=== PATIENT | male | born 2000 | race Caucasian/White ===

== ENCOUNTER 2025-07-13 22:28 | Inpatient (IN) ==
--- NOTE | 2025-07-13 22:37 | Emergency Department Note ---
Impression & Plan Alcohol withdrawal seizure, Alcoholism ED Provider Note Name: GRAHAM LOPEZ Age: 25 Sex: Male Arrives Via: Ambulance Informant: Patient, EMS, Family ED Provider: Loi Cortez MD Chief Complaint: Seizure Impression: As per impressions above Medical Decision Makin-year-old male with a history of alcoholism arrives for evaluation following a seizure. He is quite tremulous and shaky on arrival with tachycardia and hypertension. Findings consistent with acute alcohol withdrawal and admits last alcohol was 24-dawn hours ago. Laboratory workup initiated and I did obtain a CT of the head to verify no intracranial pathology from that perspective. He was empirically given some IV phenobarbital per protocol. Laboratory workup does show mildly elevated LFTs consistent with his alcoholism. He is not having any abdominal pain tenderness palpation. Given the seizure and vital sign abnormalities I do feel he requires hospitalization. Phenobarb did seem to improve his symptoms while in the department. Triage/Nursing Notes reviewed by Me Differential: ETOH Withdrawal,Epilepsy, infection, hypoglycemia, electrolyte abnormalities, cardiac sources, intracerebral event, trauma, toxicologic, neurologic, syncope, as well as other pathologies. Vital Signs: reviewed and remarkable for hypertension, tachycardia Interventions: 1 L normal saline, thiamine IV, phenobarb IV Labs:ED labs Reviewed by me and remarkable for elevated LFTs Imaging:CT of the head without contrast as per my informal interpretation reveals no intracranial hemorrhage or mass effect. EKG:As per my interpretation. Indication seizure. Sinus tachycardia 137 bpm QTc of 443. There is no ectopy nor ischemia. Nonspecific ST depressions consistent with rate. When compared to EKG of 01/06/2025 heart rate has increased. Cardiac/Tele Monitoring: Cardiac Monitoring: An Order was placed for continuous cardiac monitoring. The monitor shows a rate of 140 with a sinus tach rhythm. Consults:Discussed with Dr. Price of the hospitalist service who will further evaluate manage Plan: Disposition:Hospitalization. Condition: Fair History of Present Illness: 25-year-old male arrives for evaluation post seizure. Patient with a history of seizure like activity about a year ago and uncertain etiology. Patient notes he was feeling bit shaky and nauseous this evening. This was followed by a somewhat syncopal event with a 1 to 2-minute shaking episode. Patient gradually came to and was a bit confused. EMS arrived. Patient was hypertensive and tachycardic. Brought in the ER for further evaluation without treatment prior to arrival. Patient notes that he feels quite shaky and a bit weak. Denies any specific headache, neck pain, chest pain, shortness of breath abdominal pain, back pain, nausea, vomiting or other concerning signs or symptoms. He does admit to relatively heavy alcohol use primarily on weekends. He did have a holiday alliance party about 2 days ago though he admits he is a little unclear on the timeline right now. He believes that the last time he had a drink. Past Medical History:Denies Home Medications:Denies Allergies:NKDA Vitals:Blood Pressure: 208/152, Pulse 127, RR 28, T 37C, O2 96% on RA Physical Exam: GENERAL: Patient is anxious appearing and in mild distress. Slightly confused though A&O HEAD: AT/NC NECK: Midline trachea, no swelling. Bruising left lateral neck from where necklace caught on skin FACE: mildly edematous with petechia RESPIRATORY: No dyspnea. Clear to auscultation and equal bilaterally. CARDIOVASCULAR: Regular rate and rhythm.No murmur appreciated. GASTROINTESTINAL: Abdomen soft, non-tender, no peritonitis. EXTREMITIES: Normal motion all extremities, no cyanosis, no edema. NEUROLOGIC: Very tremulous, Alert and oriented. No focal neurologic deficits appreciated SKIN: No rash, no jaundice, no diaphoresis. PSYCH: Appropriate GCS: 15 ED Course: Times/Reassessments: Patient is gradually improving following the IV phenobarb and IV fluids. He is breathing comfortably and neurologically intact without further seizure-like activity. Agreeable to hospitalization. Critical Care: I have personally spent 30 minutes of critical care time in the direct management of this patient. Acute alcohol withdrawal with seizure requiring resuscitation and IV phenobarbital. This was a life/limb threatening event. This 30 minutes is in excess of all separately billable procedures. Loi Cortez MD Past Med/Surg History Problem List (Updated 07/14/25 @ 05:59 by Loi Cortez MD) Alcoholism (Acute) Alcohol withdrawal seizure (Acute) Seizure Right ankle injury (Acute) Medical History (Updated 07/14/25 @ 05:59 by Loi Cortez MD) Pilonidal cyst Surgical History Hx of anterior cruciate ligament surgery Family History Other No significant family history Social History (Updated 07/14/25 @ 04:16 by Ly Luna RN) Smoking Status: Never smoker Hx Alcohol Use: Yes Alcohol type: hard liquor Hx Substance Use: No Preferred Language: Urdu Communication Ability: Effective Visual Impairment: No Limitations Hearing Ability: Normal Volcanologist Required: No Beliefs That Will Affect Care: None Current Living Situation: Parent current occupational status: student Other Information That Helps Us Care for You: No Feels Safe at Home: Yes Safety Concerns: Feels Safe At This Time Assistive Devices: None Allergies Allergies Allergy/AdvReac Type Severity Reaction Status Date / Time No Known Allergies Allergy Verified 07/13/25 22:56 Home Meds Home Medications Medication Instructions Recorded Confirmed ibuprofen 125 mg-acetaminophen 250 2 tab PO DIRECTED PRN 07/13/25 07/13/25 mg tablet (Advil Dual Action) PAIN/ACHES/FEVER Results & Data (ED) Vital Signs Vital Signs - 24 hr 07/13/25 22:32 07/13/25 22:33 07/13/25 22:33 Temperature 37.0 C Temperature Source Oral Pulse Rate 143 H 147 H Pulse Rate [Apical] 145 H Pulse Rate from SpO2 Sensor 147 H Respiratory Rate 18 17 Respiratory Effort / Characteristics Non-Labored Spontaneous Respiratory Depth Normal Respiratory Pattern Regular Blood Pressure 208/152 H Blood Pressure [Right Arm] 208/152 H Blood Pressure Mean 170 Blood Pressure Mean [Right Arm] 170 Blood Pressure Position [Right Arm] Semi-fowlers Pulse Oximetry 97 91 Oxygen Delivery Method Room Air Sepsis Recent Fever Within 48 Hours Sepsis New/Unexplained Change in Mental Status Sepsis Action Taken by Nursing 07/13/25 22:36 07/13/25 22:45 07/13/25 22:48 Temperature Temperature Source Pulse Rate 127 H 121 H 117 H Pulse Rate [Apical] Pulse Rate from SpO2 Sensor 121 H 121 H Respiratory Rate 28 H 19 19 Respiratory Effort / Characteristics Non-Labored Respiratory Depth Normal Respiratory Pattern Blood Pressure 208/152 H Blood Pressure [Right Arm] Blood Pressure Mean 170 Blood Pressure Mean [Right Arm] Blood Pressure Position [Right Arm] Pulse Oximetry 96 96 97 Oxygen Delivery Method Room Air Sepsis Recent Fever Within 48 Hours No Sepsis New/Unexplained Change in Mental Status No Sepsis Action Taken by Nursing No Action Required 07/13/25 22:50 07/13/25 22:50 07/13/25 22:50 Temperature Temperature Source Pulse Rate Pulse Rate [Apical] 116 H Pulse Rate from SpO2 Sensor Respiratory Rate 18 Respiratory Effort / Characteristics Non-Labored Spontaneous Respiratory Depth Normal Respiratory Pattern Regular Blood Pressure 188/131 H 188/131 H Blood Pressure [Right Arm] 188/131 H Blood Pressure Mean 151 151 Blood Pressure Mean [Right Arm] 150 Blood Pressure Position [Right Arm] Semi-fowlers Pulse Oximetry 99 Oxygen Delivery Method Room Air Sepsis Recent Fever Within 48 Hours Sepsis New/Unexplained Change in Mental Status Sepsis Action Taken by Nursing 07/13/25 22:50 07/13/25 22:58 07/13/25 23:00 Temperature Temperature Source Pulse Rate 116 H Pulse Rate [Apical] Pulse Rate from SpO2 Sensor 117 H Respiratory Rate 17 Respiratory Effort / Characteristics Respiratory Depth Respiratory Pattern Blood Pressure 188/131 H Blood Pressure [Right Arm] Blood Pressure Mean 151 Blood Pressure Mean [Right Arm] Blood Pressure Position [Right Arm] Pulse Oximetry 100 99 Oxygen Delivery Method Room Air Sepsis Recent Fever Within 48 Hours Sepsis New/Unexplained Change in Mental Status Sepsis Action Taken by Nursing 07/13/25 23:01 07/13/25 23:30 07/14/25 00:00 Temperature Temperature Source Pulse Rate 107 H 123 H 111 H Pulse Rate [Apical] Pulse Rate from SpO2 Sensor Respiratory Rate 18 24 24 Respiratory Effort / Characteristics Respiratory Depth Respiratory Pattern Blood Pressure 169/115 H 156/111 H 153/96 H Blood Pressure [Right Arm] Blood Pressure Mean 126 115 Blood Pressure Mean [Right Arm] Blood Pressure Position [Right Arm] Pulse Oximetry 97 96 Oxygen Delivery Method Sepsis Recent Fever Within 48 Hours Sepsis New/Unexplained Change in Mental Status Sepsis Action Taken by Nursing Laboratory Data 07/13/25 22:39 07/13/25 22:39 Lab Results 07/13/25 07/13/25 07/13/25 Range/Units 22:39 22:45 22:57 WBC 8.98 (4.8-10.8) K/ul RBC 4.39 L (4.70-6.10) M/uL Hgb 14.3 (14.0-18.0) g/dL POC Hgb 15.0 (14.0-18.0) g/dl Hct 40.0 L (42.0-52.0) % POC Hct 44 (42-52) % MCV 91.1 (80.0-100.0) fL MCH 32.6 (25.0-34.0) pg MCHC 35.8 (32.0-36.0) g/dL RDW Std Deviation 41.9 (36.4-46.3) fL RDW Coeff of Giorgi 12.5 (11.5-14.5) % Plt Count 127 L (130-400) K/uL MPV 10.0 (9.4-12.4) fL Immature Gran % (Auto) 0.2 % Neut % (Auto) 70.4 % Lymph % (Auto) 14.8 % [place] % (Auto) 13.6 % Eos % (Auto) 0.3 % Baso % (Auto) 0.7 % Neut # (Auto) 6.32 (1.40-6.50) K/uL Lymph # (Auto) 1.33 (1.20-3.40) K/uL [place] # (Auto) 1.22 H (0.11-0.59) K/uL Eos # (Auto) 0.03 (0.00-0.50) K/uL Baso # (Auto) 0.06 (0.00-0.20) K/uL Immature Gran # (Auto) 0.02 (0.01-0.20) K/uL PT 11.1 (9.0-12.0) Seconds INR 1.1 (0.9-1.1) POC Sodium 134 L (135-144) mmol/L Sodium 134 L (136-145) mmol/L POC Potassium 3.2 L (3.3-5.0) mmol/L Potassium 3.2 L (3.5-5.1) mmol/L POC Chloride 96 L (101-112) mmol/L Chloride 94 L (98-107) mmol/L Carbon Dioxide 20 L (21-32) mmol/L POC Total CO2 20 L (24-31) mmol/L Anion Gap 20 H (3-11) POC Anion Gap 23.0 (16-25) mmol/L POC BUN 9 (7-18) mg/dl BUN 10 (6-23) mg/dl Creatinine 0.87 (0.6-1.4) mg/dl POC Creatinine 0.9 (0.6-1.3) mg/dl Est Cr Clr Drug Dosing 132.9 ml/min eGFR 122.04 BUN/Creatinine Ratio 11.5 (10-20) Glucose 194 H (70-99(Fasting)) mg/dl POC Glucose (other) 184 H (70-99) mg/dl Calcium 10.4 H (8.6-10.3) mg/dl POC Ioniz Calcium Pablo 1.15 (1.12-1.32) mmol/l Phosphorus 3.4 (2.5-4.9) mg/dl Magnesium 1.4 L (1.7-2.4) mg/dl Total Bilirubin 1.8 H (0.2-1.0) mg/dl Direct Bilirubin 0.3 H (0-0.2) mg/dl AST 146 H (13-39) U/L ALT 97 H (7-52) U/L Alkaline Phosphatase 69 (34-104) U/L Troponin I High Sens 8.1 (0-20) pg/ml Total Protein 8.7 H (6.0-8.3) gm/dl Albumin 4.9 (3.4-5.0) gm/dl Lipase 17 (11-82) U/L TSH 3.725 (0.300-4.500) uIu/ml Urine Color Urine Appearance (Clear) Urine pH (4.5-7.5) Ur Specific [place] (1.000-1.030) Urine Protein (Negative) Urine Glucose (UA) (Negative) Urine Ketones (Negative) Urine Blood (Negative) Urine Nitrite (Negative) Urine Bilirubin (Negative) Urine Urobilinogen (Negative) Ur Leukocyte Esterase (Negative) Urine WBC (Auto) (0-5) /hpf Urine RBC (Auto) (0-2) /hpf U Hyaline Cast (Auto) (0-2) /lpf U Epithel Cells (Auto) (0-2) /hpf Urine Bacteria (Auto) (None Seen) Urine Comment Ethyl Alcohol mg/dL < 10.0 (<10.0) mg/dl 07/13/25 Range/Units 23:30 WBC (4.8-10.8) K/ul RBC (4.70-6.10) M/uL Hgb (14.0-18.0) g/dL POC Hgb (14.0-18.0) g/dl Hct (42.0-52.0) % POC Hct (42-52) % MCV (80.0-100.0) fL MCH (25.0-34.0) pg MCHC (32.0-36.0) g/dL RDW Std Deviation (36.4-46.3) fL RDW Coeff of Giorgi (11.5-14.5) % Plt Count (130-400) K/uL MPV (9.4-12.4) fL Immature Gran % (Auto) % Neut % (Auto) % Lymph % (Auto) % [place] % (Auto) % Eos % (Auto) % Baso % (Auto) % Neut # (Auto) (1.40-6.50) K/uL Lymph # (Auto) (1.20-3.40) K/uL [place] # (Auto) (0.11-0.59) K/uL Eos # (Auto) (0.00-0.50) K/uL Baso # (Auto) (0.00-0.20) K/uL Immature Gran # (Auto) (0.01-0.20) K/uL PT (9.0-12.0) Seconds INR (0.9-1.1) POC Sodium (135-144) mmol/L Sodium (136-145) mmol/L POC Potassium (3.3-5.0) mmol/L Potassium (3.5-5.1) mmol/L POC Chloride (101-112) mmol/L Chloride (98-107) mmol/L Carbon Dioxide (21-32) mmol/L POC Total CO2 (24-31) mmol/L Anion Gap (3-11) POC Anion Gap (16-25) mmol/L POC BUN (7-18) mg/dl BUN (6-23) mg/dl Creatinine (0.6-1.4) mg/dl POC Creatinine (0.6-1.3) mg/dl Est Cr Clr Drug Dosing ml/min eGFR BUN/Creatinine Ratio (10-20) Glucose (70-99(Fasting)) mg/dl POC Glucose (other) (70-99) mg/dl Calcium (8.6-10.3) mg/dl POC Ioniz Calcium Pablo (1.12-1.32) mmol/l Phosphorus (2.5-4.9) mg/dl Magnesium (1.7-2.4) mg/dl Total Bilirubin (0.2-1.0) mg/dl Direct Bilirubin (0-0.2) mg/dl AST (13-39) U/L ALT (7-52) U/L Alkaline Phosphatase (34-104) U/L Troponin I High Sens (0-20) pg/ml Total Protein (6.0-8.3) gm/dl Albumin (3.4-5.0) gm/dl Lipase (11-82) U/L TSH (0.300-4.500) uIu/ml Urine Color Yellow Urine Appearance Clear (Clear) Urine pH 7.0 (4.5-7.5) Ur Specific [place] 1.013 (1.000-1.030) Urine Protein 1+ H (Negative) Urine Glucose (UA) Trace H (Negative) Urine Ketones 1+ H (Negative) Urine Blood Negative (Negative) Urine Nitrite Negative (Negative) Urine Bilirubin Negative (Negative) Urine Urobilinogen Negative (Negative) Ur Leukocyte Esterase Negative (Negative) Urine WBC (Auto) 0-5 (0-5) /hpf Urine RBC (Auto) 0-2 (0-2) /hpf U Hyaline Cast (Auto) 3-5 H (0-2) /lpf U Epithel Cells (Auto) 0-2 (0-2) /hpf Urine Bacteria (Auto) None Seen (None Seen) Urine Comment Ethyl Alcohol mg/dL (<10.0) mg/dl Administered Medications Potassium Chloride/Sodium Chloride (Normal Saline W/20 Meq Kcl) 20 meq in 1,000 mls @ 100 mls/hr IV .Q10H STA Stop: 07/14/25 10:44 Last Admin: 07/14/25 01:45 Dose: 100 mls/hr Documented By: AUGUSTIN Discontinued Medications Clonidine HCl (Clonidine Hcl 0.1 Mg Tab) 0.1 mg PO NOW STA Stop: 07/14/25 00:46 Last Admin: 07/14/25 01:38 Dose: 0.1 mg Documented By: AUGUSTIN Thiamine HCl 100 mg/ Syringe 10 mls @ 2 mls/min IV NOW STA Stop: 07/13/25 22:39 Last Admin: 07/13/25 23:26 Dose: 2 mls/min Documented By: JOSE Sodium Chloride (Nss) 1,000 mls @ 999 mls/hr IV .Q1H1M ONE Stop: 07/13/25 23:35 Last Infusion: 07/13/25 23:36 Dose: Infused Documented By: Admin: 07/13/25 22:42 Dose: 999 mls/hr Documented By: HANG Phenobarbital Sodium 325 mg/ (Sodium Chloride) 52.5 mls @ 315 mls/hr IV ONE ONE Stop: 07/13/25 22:57 Last Infusion: 07/13/25 23:13 Dose: Infused Documented By: Admin: 07/13/25 23:01 Dose: 315 mls/hr Documented By: HANG Magnesium Sulfate/Dextrose (Magnesium Sulfate / D5w) 1 gm in 100 mls @ 100 mls/hr IV NOW STA Stop: 07/14/25 00:16 Last Infusion: 07/14/25 00:51 Dose: Infused Documented By: Admin: 07/13/25 23:35 Dose: 100 mls/hr Documented By: JOSE Sodium Chloride (Nss) 1,000 mls @ 125 mls/hr IV .Q8H BRIA Stop: 07/16/25 23:44 Last Infusion: 07/14/25 00:51 Dose: Infused Documented By: Admin: 07/14/25 00:03 Dose: 125 mls/hr Documented By: JOSE Magnesium Sulfate/Dextrose (Magnesium Sulfate / D5w) 1 gm in 100 mls @ 50 mls/hr IV Q2H BRIA Stop: 07/14/25 04:14 Last Infusion: 07/14/25 05:07 Dose: Infused Documented By: radha Admin: 07/14/25 02:57 Dose: 50 mls/hr Documented By: Infusion: 07/14/25 02:57 Dose: Infused Documented By: Admin: 07/14/25 01:38 Dose: 50 mls/hr Documented By: AUGUSTIN Miscellaneous (Stat Iv/Im) 1 each N/A NOW STA Stop: 07/13/25 22:42 Last Admin: 07/13/25 23:03 Dose: Not Given Documented By: HANG Phenobarbital Sodium (Phenobarbital Sodium 130 Mg/Ml Vial) 260 mg 3.6 mg/kg (260 mg) IM ONE ONE Stop: 07/14/25 01:57 Last Admin: 07/14/25 01:45 Dose: 260 mg Documented By: AUGUSTIN Phenobarbital Sodium (Phenobarbital Sodium 130 Mg/Ml Vial) 260 mg 3.6 mg/kg (260 mg) IM ONE ONE Stop: 07/14/25 05:07 Last Admin: 07/14/25 04:54 Dose: 260 mg Documented By: radha Potassium Chloride (Potassium Chloride Crtab 20 Meq Tabcr) 40 meq PO NOW STA Stop: 07/14/25 00:30 Last Admin: 07/14/25 01:38 Dose: 40 meq Documented By: AUGUSTIN Potassium Chloride (Potassium Chloride Crtab 20 Meq Tabcr) 40 meq PO ONE ONE Stop: 07/14/25 02:01 Last Admin: 07/14/25 02:34 Dose: Not Given Documented By: AUGUSTIN Imaging Data Radiologist's Impression: Head CT 07/13/25 22:44 Exam(s): CT HEAD Without Contrast EXAM: CT Head Without Intravenous Contrast CLINICAL HISTORY: Reason for exam: post seizure,. OTHER: Other Notes: seizure TECHNIQUE: Axial computed tomography images of the head/brain without intravenous contrast. CTDI is 37.51 mGy and DLP is 624.41 mGy-cm. Automated exposure control was utilized for the study. A dose lowering technique was utilized adhering to the principles of ALARA. COMPARISON: No relevant prior studies available. FINDINGS: Brain: Unremarkable. No hemorrhage. No significant white matter disease. No edema. Ventricles: Unremarkable. No ventriculomegaly. Bones/joints: Unremarkable. No acute fracture. Soft tissues: Unremarkable. Sinuses: Unremarkable as visualized. No acute sinusitis. Mastoid air cells: Unremarkable as visualized. No mastoid effusion. IMPRESSION: Normal head/brain CT. Electronically signed by: Vlad Méndez MD 07/14/25 00:23 AM Discharge Plan Visit Data Chief Complaint: Seizure Stated Complaint: Seizure ED Provider: Loi Cortez Discharge Problem: Alcohol withdrawal seizure, Alcoholism Patient Disposition: Admitted As Inpatient Condition: Fair Discharge Instructions Interventions: ED Discharge Assessment Last Done: 07/14/25 02:05 Discharge Problem: Alcohol withdrawal seizure Qualifiers: Complication of substance-induced condition: uncomplicated Qualified Code(s): F 10.930 - Alcohol use, unspecified with withdrawal, uncomplicated
[2025-07-13] MEDS: SODIUM CHLORIDE 0.9% 1,000 ML IV ONE (22:42)
[2025-07-13 22:58] LABS: Hematocrit (blood only) 40.0 % (42.0-52.0); Hemoglobin 14.3 g/dL (14.0-18.0); Immature Granulocytes # (auto) 0.02 K/uL (0.01-0.20); Immature Granulocytes % (auto) 0.2 %; Mean Corpuscular Hemoglobin 32.6 pg (25.0-34.0); Mean Corpuscular Volume 91.1 fL (80.0-100.0); Platelet Count 127 K/uL (130-400); RDW Standard Deviation 41.9 fL (36.4-46.3); Red Blood Count 4.39 M/uL (4.70-6.10); White Blood Count 8.98 K/ul (4.8-10.8)
[2025-07-13] MEDS: STAT IV/IM STA (23:03)
[2025-07-13 23:15] LABS: Alanine Aminotransferase 97.0 U/L (7-52); Albumin Level 4.9 gm/dl (3.4-5.0); Alkaline Phosphatase 69.0 U/L (34-104); Anion Gap 20.0 (3-11); Bilirubin,Total 1.8 mg/dl (0.2-1.0); Blood Urea Nitrogen 10.0 mg/dl (6-23); Calcium 10.4 mg/dl (8.6-10.3); Carbon Dioxide 20.0 mmol/L (21-32); Chloride 94.0 mmol/L (98-107); Creatinine Clr Calc Pharmacy 132.9 ml/min; Glucose 194.0 mg/dl (70-99(Fasting)); Lipase 17.0 U/L (11-82); Magnesium 1.4 mg/dl (1.7-2.4); Potassium 3.2 mmol/L (3.5-5.1); Sodium 134.0 mmol/L (136-145); Total Protein 8.7 gm/dl (6.0-8.3)
[2025-07-13] MEDS: THIAMINE HCL 100 MG in SYRINGE 9 ML IV STA (23:26)
[2025-07-13 23:31] LABS: Thyroid Stimulating Hormone 3.725 uIu/ml (0.300-4.500)
[2025-07-13] MEDS: MAGNESIUM SULFATE / D5W 1 GM/100 ML BAG IV STA (23:35)
[2025-07-13 23:42] LABS: Appearance Urine Clear (Clear); Bacteria Urine Automated None Seen (None Seen); Epithelial Cell Urine Auto 0-2 /hpf (0-2); Glucose Urine UA Trace (Negative); RBC Urine Automated 0-2 /hpf (0-2); WBC Urine Automated 0-5 /hpf (0-5)
--- NOTE | 2025-07-13 23:59 | History & Physical Report ---
Date of Service July 13, 2025 History of Present Illness Primary Care Provider: NO PCP Allergies Allergy/AdvReac Type Severity Reaction Status Date / Time No Known Allergies Allergy Verified 07/13/25 22:56 Home Medications Medication Instructions Recorded Confirmed Type ibuprofen 125 mg-acetaminophen 250 2 tab PO DIRECTED PRN 07/13/25 07/13/25 History mg tablet (Advil Dual Action) PAIN/ACHES/FEVER Past Med/Surg History Problem List (Updated 01/22/25 @ 00:06 by Background Sonny) Right ankle injury (Acute) Medical History (Updated 01/22/25 @ 00:06 by Background Sonny) Pilonidal cyst Surgical History (Updated 08/20/19 @ 00:05 by Lul Bar) Hx of anterior cruciate ligament surgery Family History (Updated 08/20/19 @ 00:05 by Lul Bar) Other No significant family history Social History (Updated 08/20/19 @ 00:05 by Lul Bar) Smoking Status: Never smoker Hx Alcohol Use: Yes Hx Substance Use: No Preferred Language: Guyanese current occupational status: student Feels Safe at Home: Yes Results & Data Results & Data Vital Signs (Past 12 Hours) Vital Signs Temp Pulse Pulse Resp BP BP Pulse Ox 07/13/25 23:30 123 H 24 156/111 H 97 07/13/25 23:01 107 H 18 169/115 H 07/13/25 23:00 116 H 17 99 07/13/25 22:58 100 07/13/25 22:50 188/131 H 07/13/25 22:50 188/131 H 07/13/25 22:50 188/131 H 07/13/25 22:50 116 H 18 188/131 H 99 07/13/25 22:48 117 H 19 97 07/13/25 22:45 121 H 19 96 07/13/25 22:36 127 H 28 H 208/152 H 96 07/13/25 22:33 147 H 17 208/152 H 91 07/13/25 22:33 37.0 C 145 H 18 208/152 H 97 07/13/25 22:32 143 H O2 Del Method 07/13/25 23:30 07/13/25 23:01 07/13/25 23:00 07/13/25 22:58 Room Air 07/13/25 22:50 07/13/25 22:50 07/13/25 22:50 07/13/25 22:50 Room Air 07/13/25 22:48 07/13/25 22:45 07/13/25 22:36 Room Air 07/13/25 22:33 07/13/25 22:33 Room Air 07/13/25 22:32 Laboratory Results Laboratory Results WBC 8.98 K/ul (4.8-10.8) 07/13/25 22:39 RBC 4.39 M/uL (4.70-6.10) L 07/13/25 22:39 Hgb 14.3 g/dL (14.0-18.0) 07/13/25 22:39 POC Hgb 15.0 g/dl (14.0-18.0) 07/13/25 22:45 Hct 40.0 % (42.0-52.0) L 07/13/25 22:39 POC Hct 44 % (42-52) 07/13/25 22:45 MCV 91.1 fL (80.0-100.0) 07/13/25 22:39 MCH 32.6 pg (25.0-34.0) 07/13/25 22:39 MCHC 35.8 g/dL (32.0-36.0) 07/13/25 22:39 RDW Std Deviation 41.9 fL (36.4-46.3) 07/13/25 22:39 RDW Coeff of Giorgi 12.5 % (11.5-14.5) 07/13/25 22:39 Plt Count 127 K/uL (130-400) L 07/13/25 22:39 MPV 10.0 fL (9.4-12.4) 07/13/25 22:39 Immature Gran % (Auto) 0.2 % 07/13/25 22:39 Neut % (Auto) 70.4 % 07/13/25 22:39 Lymph % (Auto) 14.8 % 07/13/25 22:39 [place] % (Auto) 13.6 % 07/13/25 22:39 Eos % (Auto) 0.3 % 07/13/25 22:39 Baso % (Auto) 0.7 % 07/13/25 22:39 Neut # (Auto) 6.32 K/uL (1.40-6.50) 07/13/25 22:39 Lymph # (Auto) 1.33 K/uL (1.20-3.40) 07/13/25 22:39 [place] # (Auto) 1.22 K/uL (0.11-0.59) H 07/13/25 22:39 Eos # (Auto) 0.03 K/uL (0.00-0.50) 07/13/25 22:39 Baso # (Auto) 0.06 K/uL (0.00-0.20) 07/13/25 22:39 Immature Gran # (Auto) 0.02 K/uL (0.01-0.20) 07/13/25 22:39 POC Sodium 134 mmol/L (135-144) L 07/13/25 22:45 Sodium 134 mmol/L (136-145) L 07/13/25 22:39 POC Potassium 3.2 mmol/L (3.3-5.0) L 07/13/25 22:45 Potassium 3.2 mmol/L (3.5-5.1) L 07/13/25 22:39 POC Chloride 96 mmol/L (101-112) L 07/13/25 22:45 Chloride 94 mmol/L (98-107) L 07/13/25 22:39 Carbon Dioxide 20 mmol/L (21-32) L 07/13/25 22:39 POC Total CO2 20 mmol/L (24-31) L 07/13/25 22:45 Anion Gap 20 (3-11) H 07/13/25 22:39 POC Anion Gap 23.0 mmol/L (16-25) 07/13/25 22:45 POC BUN 9 mg/dl (7-18) 07/13/25 22:45 BUN 10 mg/dl (6-23) 07/13/25 22:39 Creatinine 0.87 mg/dl (0.6-1.4) 07/13/25 22:39 POC Creatinine 0.9 mg/dl (0.6-1.3) 07/13/25 22:45 Est Cr Clr Drug Dosing 132.9 ml/min 07/13/25 22:39 eGFR 122.04 07/13/25 22:39 BUN/Creatinine Ratio 11.5 (10-20) 07/13/25 22:39 Glucose 194 mg/dl (70-99(Fasting)) H 07/13/25 22:39 POC Glucose (other) 184 mg/dl (70-99) H 07/13/25 22:45 Calcium 10.4 mg/dl (8.6-10.3) H 07/13/25 22:39 POC Ioniz Calcium Pablo 1.15 mmol/l (1.12-1.32) 07/13/25 22:45 Magnesium 1.4 mg/dl (1.7-2.4) L 07/13/25 22:39 Total Bilirubin 1.8 mg/dl (0.2-1.0) H 07/13/25 22:39 Direct Bilirubin 0.3 mg/dl (0-0.2) H 07/13/25 22:39 AST 146 U/L (13-39) H 07/13/25 22:39 ALT 97 U/L (7-52) H 07/13/25 22:39 Alkaline Phosphatase 69 U/L (34-104) 07/13/25 22:39 Troponin I High Sens 8.1 pg/ml (0-20) 07/13/25 22:39 Total Protein 8.7 gm/dl (6.0-8.3) H 07/13/25 22:39 Albumin 4.9 gm/dl (3.4-5.0) 07/13/25 22:39 Lipase 17 U/L (11-82) 07/13/25 22:39 TSH 3.725 uIu/ml (0.300-4.500) 07/13/25 22:39 Urine Color Yellow 07/13/25 23:30 Urine Appearance Clear (Clear) 07/13/25 23:30 Urine pH 7.0 (4.5-7.5) 07/13/25 23:30 Ur Specific [place] 1.013 (1.000-1.030) 07/13/25 23:30 Urine Protein 1+ (Negative) H 07/13/25 23:30 Urine Glucose (UA) Trace (Negative) H 07/13/25 23:30 Urine Ketones 1+ (Negative) H 07/13/25 23:30 Urine Blood Negative (Negative) 07/13/25 23: Urine Nitrite Negative (Negative) 07/13/25 23:30 Urine Bilirubin Negative (Negative) 07/13/25 23:30 Urine Urobilinogen Negative (Negative) 07/13/25 23:30 Ur Leukocyte Esterase Negative (Negative) 07/13/25 23:30 Urine WBC (Auto) 0-5 /hpf (0-5) 07/13/25 23:30 Urine RBC (Auto) 0-2 /hpf (0-2) 07/13/25 23:30 U Hyaline Cast (Auto) 3-5 /lpf (0-2) H 07/13/25 23:30 U Epithel Cells (Auto) 0-2 /hpf (0-2) 07/13/25 23:30 Urine Bacteria (Auto) None Seen (None Seen) 07/13/25 23:30 Urine Comment 07/13/25 23:30 Ethyl Alcohol mg/dL < 10.0 mg/dl (<10.0) 07/13/25 22:57
--- NOTE | 2025-07-14 00:01 | History & Physical Report ---
Date of Service July 14, 2025 Assessment & Plan (1) Seizure: Plan: Assessment and plan below following discussion of case with ED provider and reviewing patient history/pertinent normal/abnormal diagnostic test results. New onset seizures Possible alcohol withdrawal Alcoholic hepatitis, likely good prognosis on Maddrey's DF score given normal coags Hypokalemia, hypomagnesemia Hyperglycemia rule out DM New onset thrombocytopenia, possibly secondary to liver disease Childhood asthma, patient currently without respiratory symptoms Admit to PCU Seizure precautions, Ativan as needed active seizures EEG, Brain MRI, Neurology consult Re: New onset seizures Phenobarbital alcohol withdrawal protocol as initiated in the ER, DT precautions Follow LFTs, liver ultrasound if with progression Replace electrolytes Check hemoglobin A1c DVT prophylaxis. SCDs Re: Thrombocytopenia Full code Patient mother requesting update providers. Reyna Ly Lopez, contact #[phone]. Text document was generated using [employer] recognition software. It may contain grammatical or spelling errors. Kindly contact undersigned for clarification of any documentation item in question. History of Present Illness Chief Complaint: Fall, seizures Primary Care Provider: NO PCP History obtained from patient, family, and records. Medical history significant for childhood asthma, alcohol abuse. 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 Patient witnessed to have seizures by coworkers. Left facial trauma resulting from fall Episode lasting 1 to 2 minutes. No prior episodes. Patient woke up inside the ambulance en route to the hospital. Thinks he might have bitten his tongue. No urinary incontinence. Denies chest pain, SOB, headache symptoms. Admits to heavy drinking from time to time. Last EtOH intake was 2 days ago. Denies depression. Work stressful at the [employer] this week due to holiday season. Phenobarbital protocol for alcohol withdrawal initiated at the ER. Medical History as above Surgical History : Pilonidal cyst removal, knee surgery Family History : DM, alcoholism Personal/Social history : Non-smoker, alcohol abuse, hotel banquet service employment Allergies Allergy/AdvReac Type Severity Reaction Status Date / Time No Known Allergies Allergy Verified 07/13/25 22:56 Home Medications Medication Instructions Recorded Confirmed Type ibuprofen 125 mg-acetaminophen 250 2 tab PO DIRECTED PRN 07/13/25 07/13/25 History mg tablet (Advil Dual Action) PAIN/ACHES/FEVER Past Med/Surg History Problem List (Updated 07/14/25 @ 02:08 by Margarito Price MD) Seizure Right ankle injury (Acute) Medical History (Updated 07/14/25 @ 02:08 by Margarito Price MD) Pilonidal cyst Surgical History (Updated 08/20/19 @ 00:05 by Lul Bar) Hx of anterior cruciate ligament surgery Family History (Updated 08/20/19 @ 00:05 by Lul Bar) Other No significant family history Social History (Updated 08/20/19 @ 00:05 by Lul Bar) Smoking Status: Never smoker Hx Alcohol Use: Yes Hx Substance Use: No Preferred Language: Citizen Of [place] Communication Ability: Effective Makeup Sales Advisor Required: No Beliefs That Will Affect Care: None Current Living Situation: Family current occupational status: student Feels Safe at Home: Yes Review of Systems Review of Systems: As per HPI, all other systems reviewed and negative Physical Exam Physical Exam: GENERAL: Comfortable, no respiratory distress SKIN: Normal color, warm HEENT: Abrasion left face, pink palpebral conjunctivae, no ptosis, dry buccal mucosa NECK : Supple, no tenderness CHEST : CTA, no tenderness HEART : Tachycardic, no obvious murmurs ABDOMEN: Some distention, nontender EXTREMITIES : No LE swelling/tenderness, palpable pulses, no other conspicuous deformities noted NEUROLOGIC : Coherent, no facial asymmetry, no other gross focality Results & Data Results & Data Vital Signs (Past 12 Hours) Vital Signs Temp Pulse Pulse Resp BP BP Pulse Ox 07/13/25 23:30 123 H 24 156/111 H 97 07/13/25 23:01 107 H 18 169/115 H 07/13/25 23:00 116 H 17 99 07/13/25 22:58 100 07/13/25 22:50 188/131 H 07/13/25 22:50 188/131 H 07/13/25 22:50 188/131 H 07/13/25 22:50 116 H 18 188/131 H 99 07/13/25 22:48 117 H 19 97 07/13/25 22:45 121 H 19 96 07/13/25 22:36 127 H 28 H 208/152 H 96 07/13/25 22:33 147 H 17 208/152 H 91 07/13/25 22:33 37.0 C 145 H 18 208/152 H 97 07/13/25 22:32 143 H O2 Del Method 07/13/25 23:30 07/13/25 23:01 07/13/25 23:00 07/13/25 22:58 Room Air 07/13/25 22:50 07/13/25 22:50 07/13/25 22:50 07/13/25 22:50 Room Air 07/13/25 22:48 07/13/25 22:45 07/13/25 22:36 Room Air 07/13/25 22:33 07/13/25 22:33 Room Air 07/13/25 22:32 Laboratory Results Laboratory Results WBC 8.98 K/ul (4.8-10.8) 07/13/25 22:39 RBC 4.39 M/uL (4.70-6.10) L 07/13/25 22:39 Hgb 14.3 g/dL (14.0-18.0) 07/13/25 22:39 POC Hgb 15.0 g/dl (14.0-18.0) 07/13/25 22:45 Hct 40.0 % (42.0-52.0) L 07/13/25 22:39 POC Hct 44 % (42-52) 07/13/25 22:45 MCV 91.1 fL (80.0-100.0) 07/13/25 22:39 MCH 32.6 pg (25.0-34.0) 07/13/25 22:39 MCHC 35.8 g/dL (32.0-36.0) 07/13/25 22:39 RDW Std Deviation 41.9 fL (36.4-46.3) 07/13/25 22:39 RDW Coeff of Giorgi 12.5 % (11.5-14.5) 07/13/25 22:39 Plt Count 127 K/uL (130-400) L 07/13/25 22:39 MPV 10.0 fL (9.4-12.4) 07/13/25 22:39 Immature Gran % (Auto) 0.2 % 07/13/25 22:39 Neut % (Auto) 70.4 % 07/13/25 22:39 Lymph % (Auto) 14.8 % 07/13/25 22:39 Cooper % (Auto) 13.6 % 07/13/25 22:39 Eos % (Auto) 0.3 % 07/13/25 22:39 Baso % (Auto) 0.7 % 07/13/25 22:39 Neut # (Auto) 6.32 K/uL (1.40-6.50) 07/13/25 22:39 Lymph # (Auto) 1.33 K/uL (1.20-3.40) 07/13/25 22:39 Cooper # (Auto) 1.22 K/uL (0.11-0.59) H 07/13/25 22:39 Eos # (Auto) 0.03 K/uL (0.00-0.50) 07/13/25 22:39 Baso # (Auto) 0.06 K/uL (0.00-0.20) 07/13/25 22:39 Immature Gran # (Auto) 0.02 K/uL (0.01-0.20) 07/13/25 22:39 POC Sodium 134 mmol/L (135-144) L 07/13/25 22:45 Sodium 134 mmol/L (136-145) L 07/13/25 22:39 POC Potassium 3.2 mmol/L (3.3-5.0) L 07/13/25 22:45 Potassium 3.2 mmol/L (3.5-5.1) L 07/13/25 22:39 POC Chloride 96 mmol/L (101-112) L 07/13/25 22:45 Chloride 94 mmol/L (98-107) L 07/13/25 22:39 Carbon Dioxide 20 mmol/L (21-32) L 07/13/25 22:39 POC Total CO2 20 mmol/L (24-31) L 07/13/25 22:45 Anion Gap 20 (3-11) H 07/13/25 22:39 POC Anion Gap 23.0 mmol/L (16-25) 07/13/25 22:45 POC BUN 9 mg/dl (7-18) 07/13/25 22:45 BUN 10 mg/dl (6-23) 07/13/25 22:39 Creatinine 0.87 mg/dl (0.6-1.4) 07/13/25 22:39 POC Creatinine 0.9 mg/dl (0.6-1.3) 07/13/25 22:45 Est Cr Clr Drug Dosing 132.9 ml/min 07/13/25 22:39 eGFR 122.04 07/13/25 22:39 BUN/Creatinine Ratio 11.5 (10-20) 07/13/25 22:39 Glucose 194 mg/dl (70-99(Fasting)) H 07/13/25 22:39 POC Glucose (other) 184 mg/dl (70-99) H 07/13/25 22:45 Calcium 10.4 mg/dl (8.6-10.3) H 07/13/25 22:39 POC Ioniz Calcium Pablo 1.15 mmol/l (1.12-1.32) 07/13/25 22:45 Magnesium 1.4 mg/dl (1.7-2.4) L 07/13/25 22:39 Total Bilirubin 1.8 mg/dl (0.2-1.0) H 07/13/25 22:39 Direct Bilirubin 0.3 mg/dl (0-0.2) H 07/13/25 22:39 AST 146 U/L (13-39) H 07/13/25 22:39 ALT 97 U/L (7-52) H 07/13/25 22:39 Alkaline Phosphatase 69 U/L (34-104) 07/13/25 22:39 Troponin I High Sens 8.1 pg/ml (0-20) 07/13/25 22:39 Total Protein 8.7 gm/dl (6.0-8.3) H 07/13/25 22:39 Albumin 4.9 gm/dl (3.4-5.0) 07/13/25 22:39 Lipase 17 U/L (11-82) 07/13/25 22:39 TSH 3.725 uIu/ml (0.300-4.500) 07/13/25 22:39 Urine Color Yellow 07/13/25 23:30 Urine Appearance Clear (Clear) 07/13/25 23:30 Urine pH 7.0 (4.5-7.5) 07/13/25 23:30 Ur Specific [place] 1.013 (1.000-1.030) 07/13/25 23:30 Urine Protein 1+ (Negative) H 07/13/25 23:30 Urine Glucose (UA) Trace (Negative) H 07/13/25 23:30 Urine Ketones 1+ (Negative) H 07/13/25 23:30 Urine Blood Negative (Negative) 07/13/25 23:30 Urine Nitrite Negative (Negative) 07/13/25 23:30 Urine Bilirubin Negative (Negative) 07/13/25 23:30 Urine Urobilinogen Negative (Negative) 07/13/25 23:30 Ur Leukocyte Esterase Negative (Negative) 07/13/25 23:30 Urine WBC (Auto) 0-5 /hpf (0-5) 07/13/25 23:30 Urine RBC (Auto) 0-2 /hpf (0-2) 07/13/25 23:30 U Hyaline Cast (Auto) 3-5 /lpf (0-2) H 07/13/25 23:30 U Epithel Cells (Auto) 0-2 /hpf (0-2) 07/13/25 23:30 Urine Bacteria (Auto) None Seen (None Seen) 07/13/25 23:30 Urine Comment 07/13/25 23:30 Ethyl Alcohol mg/dL < 10.0 mg/dl (<10.0) 07/13/25 22:57 CT head: Normal head/brain CT. Diagnostic Findings EKG as per my interpretation :Rate 140, sinus tachycardia, normal axis, no ischemia
[2025-07-14] MEDS: SODIUM CHLORIDE 0.9% 1,000 ML IV SCH (00:03)
--- NOTE | 2025-07-14 00:25 | CT Scan Report ---
Exam(s): CT HEAD Without Contrast EXAM: CT Head Without Intravenous Contrast CLINICAL HISTORY: Reason for exam: post seizure,. OTHER: Other Notes: seizure TECHNIQUE: Axial computed tomography images of the head/brain without intravenous contrast. CTDI is 37.51 mGy and DLP is 624.41 mGy-cm. Automated exposure control was utilized for the study. A dose lowering technique was utilized adhering to the principles of ALARA. COMPARISON: No relevant prior studies available. FINDINGS: Brain: Unremarkable. No hemorrhage. No significant white matter disease. No edema. Ventricles: Unremarkable. No ventriculomegaly. Bones/joints: Unremarkable. No acute fracture. Soft tissues: Unremarkable. Sinuses: Unremarkable as visualized. No acute sinusitis. Mastoid air cells: Unremarkable as visualized. No mastoid effusion. IMPRESSION: Normal head/brain CT. Electronically signed by: Vlad Méndez MD 07/14/25 00:23 AM
[2025-07-14 00:31] LABS: INR 1.1 (0.9-1.1); Prothrombin Time 11.1 Seconds (9.0-12.0)
[2025-07-14] MEDS ORDERED: PROMETHAZINE 6.25 MG/50.25 ML BAG IV PRN (00:31)
[2025-07-14] MEDS ORDERED: ACETAMINOPHEN 500 MG TAB PO PRN (00:31)
[2025-07-14] MEDS ORDERED: LORazepam Inj 1 MG in SYRINGE 0.5 ML IV PRN (00:31)
[2025-07-14] MEDS ORDERED: LORazepam 0.5 MG TAB PO PRN (00:48)
[2025-07-14] MEDS: POTASSIUM CHLORIDE CRTAB 20 MEQ TABCR PO STA ×2 (01:38→08:22)
[2025-07-14] MEDS: MAGNESIUM SULFATE / D5W 1 GM/100 ML BAG IV SCH (01:38)
[2025-07-14] MEDS: NSS + 20MEQ KCL 20 MEQ/1,000 ML BAG IV STA (01:45)
[2025-07-14] MEDS: POTASSIUM CHLORIDE CRTAB 20 MEQ TABCR PO ONE (02:34)
[2025-07-14 04:57] VITALS: RESP 18
[2025-07-14 06:47] LABS: Hematocrit (blood only) 35.2 % (42.0-52.0); Hemoglobin 12.7 g/dL (14.0-18.0); Immature Granulocytes # (auto) 0.03 K/uL (0.01-0.20); Immature Granulocytes % (auto) 0.4 %; Mean Corpuscular Hemoglobin 33.1 pg (25.0-34.0); Mean Corpuscular Volume 91.7 fL (80.0-100.0); Platelet Count 115 K/uL (130-400); RDW Standard Deviation 41.7 fL (36.4-46.3); Red Blood Count 3.84 M/uL (4.70-6.10); White Blood Count 8.50 K/ul (4.8-10.8)
[2025-07-14 07:35] LABS: Alanine Aminotransferase 81.0 U/L (7-52); Albumin Globulin Ratio 1.8 (0.9-2); Albumin Level 4.6 gm/dl (3.4-5.0); Alkaline Phosphatase 48.0 U/L (34-104); Anion Gap 11.0 (3-11); Bilirubin,Total 1.3 mg/dl (0.2-1.0); Blood Urea Nitrogen 7.0 mg/dl (6-23); Calcium 8.8 mg/dl (8.6-10.3); Carbon Dioxide 25.0 mmol/L (21-32); Chloride 101.0 mmol/L (98-107); Creatinine Clr Calc Pharmacy 214.0 ml/min; Globulin 2.5 gm/dl (2.5-4.0); Glucose 78.0 mg/dl (70-99(Fasting)); Magnesium 2.3 mg/dl (1.7-2.4); Potassium 3.3 mmol/L (3.5-5.1); Sodium 137.0 mmol/L (136-145); Total Protein 7.1 gm/dl (6.0-8.3)
[2025-07-14 07:44] LABS: Hemoglobin A1C 5.1 % (4.5-5.6)
--- NOTE | 2025-07-14 07:56 | Communication Note ---
Date of Service: July 14, 2025 evalauted at bedside, reports feeling groggy denies history of withdrawal. Reports that he goes a few days here and there without drinking and denies prior seizures, but does report that sensation of "needing a drink" denies hallucinations, denies any recent history of new onset headaches, vision changes etc reports that he does not wish to undergo MRI as he is self pay, explained that given new onset seizure, often structural evaluation is warranted, and I cannot say with any reassurances that he does not have something abnormal from that respect contributing to the seisure, patient verbalized understanding Mother at bedside GENERAL APPEARANCE: AxOx4, tired, just waking up "groggy" HEENT: NC, AT. MMM. EOMI, clear conjunctiva, oropharynx clear. NECK: Supple without lymphadenopathy. No stiffness or restricted ROM. HEART: Normal rate and regular rhythm, normal S1/S1, no m/r/g LUNGS: CTAB, moving air well. No crackles or wheezes are heard. ABDOMEN: Soft, nontender, nondistended with good bowel sounds heard. EXTREMITIES: Without cyanosis, clubbing or edema. NEUROLOGICAL: Grossly nonfocal. Alert and oriented, moving all 4 extremities. CN not formally tested but appear grossly intact. Skin: Warm and dry without any rash. #New onset seizure #Alcohol misuse loaded with phenobarb ativan prn right now continue folate/b12 MRI declined by patient CM to discuss about insurance Neuro consulted, will follow recommendations #anemia likely dilutional order anemia labs, no signs of bleeding at this time rest of plan as HP
[2025-07-14] MEDS: FOLIC ACID 1 MG TAB PO SCH (08:18)
[2025-07-14] MEDS: MULTIVITAMIN TAB PO SCH (08:18)
[2025-07-14] MEDS: THIAMINE HCL 100 MG TAB PO SCH (08:18)
[2025-07-14 13:20] LABS: Folate (Folic Acid),Ser orPlas > 22.30 ng/ml (>5.38)
[2025-07-14 13:21] LABS: Anion Gap 9.0 (3-11); Blood Urea Nitrogen 6.0 mg/dl (6-23); Calcium 8.8 mg/dl (8.6-10.3); Carbon Dioxide 25.0 mmol/L (21-32); Chloride 101.0 mmol/L (98-107); Creatinine Clr Calc Pharmacy 195.9 ml/min; Ferritin 688.8 ng/ml (8-388); Glucose 109.0 mg/dl (70-99(Fasting)); Iron 69.0 mcg/dl (35-175); Potassium 4.1 mmol/L (3.5-5.1); Sodium 135.0 mmol/L (136-145); Total Iron Binding Cap Calc 377.0 mcg/dl (250-450); Transferrin 269.0 mg/dl (200-360); Transferrin (FE) Percent Satur 18.0 % (20-50); Vitamin B12 503 pg/ml (180-914)
[2025-07-14 15:04] VITALS: BP 120/68; PULSE 78; TEMP 98.6; O2SAT 98
--- NOTE | 2025-07-14 17:44 | Discharge Summary ---
Discharge Summary Date of Service July 14, 2025 Principal Dx & Hospital Course #1 = Principal Diagnosis (1) Seizure: Mr. Lopez is a 25 yo male with childhood asthma and alcohol misuse admitted for new onset seizure. Patients lfts improved from admission. Patient with anemia suspicious of chronic etiology likely iso alcohol use. Patient evaluated by Neurology with plans for outpatient EEG. [place] DOT form to be filed iso new onset seizure on 07/13. Patient informed he is not to drive and privileges will likely need to be reinstated by PCP or neurology after 6 months of seizure free activity. On day of discharge, patient did not receive any further medications for withdrawal symptoms or seizures after phenobarbital load. Patient without any concerns or focal deficits. Follow up to be arranged come Wednesday. #new onset seizure #alcohol withdrawal seizure likely #Alcohol misuse reports episodes of binge drinking declined MRI at this time Neuro evaluated: cessation, OP EEG and follow up encouraged, no driving at this time until 6 months seizure free activity #Transaminitis #Thrombocytopenia lfts downtrending platelets anticipated to plateau likely iso etoh use Notes For Next Care Provider -EEG needed for Follow up -Plan for labs CBC and CMP on follow up in 1 week -[place] DOT form filed Medication Changes From Visit none Admission HPI Per Admitting Provider History obtained from patient, family, and records. Medical history significant for childhood asthma, alcohol abuse. 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 Patient witnessed to have seizures by coworkers. Left facial trauma resulting from fall Episode lasting 1 to 2 minutes. No prior episodes. Patient woke up inside the ambulance en route to the hospital. Thinks he might have bitten his tongue. No urinary incontinence. Denies chest pain, SOB, headache symptoms. Admits to heavy drinking from time to time. Last EtOH intake was 2 days ago. Denies depression. Work stressful at the [employer] this week due to holiday season. Phenobarbital protocol for alcohol withdrawal initiated at the ER. Medical History as above Surgical History : Pilonidal cyst removal, knee surgery Family History : DM, alcoholism Personal/Social history : Non-smoker, alcohol abuse, hotel banquet service employment Admission Exam Per Admitting Provider GENERAL: Comfortable, no respiratory distress SKIN: Normal color, warm HEENT: Abrasion left face, pink palpebral conjunctivae, no ptosis, dry buccal mucosa NECK : Supple, no tenderness CHEST : CTA, no tenderness HEART : Tachycardic, no obvious murmurs ABDOMEN: Some distention, nontender EXTREMITIES : No LE swelling/tenderness, palpable pulses, no other conspicuous deformities noted NEUROLOGIC : Coherent, no facial asymmetry, no other gross focality Discharge Exam Constitutional WD/WN, vitals as above Respiratory normal respiratory effort, lungs clear to auscultation Cardiovascular RRR, no murmur, no edema Gastrointestinal (Abdomen) normal bowel sounds, soft, nontender, no hepatosplenomegaly Updated Medication List Medication Instructions Recorded Confirmed Type ibuprofen 125 mg-acetaminophen 250 2 tab PO DIRECTED PRN 07/13/25 07/13/25 History mg tablet (Advil Dual Action) PAIN/ACHES/FEVER Hospital Stay Data Consultations 07/13/25 23:43 ED Decision to Admit Stat 07/14/25 00:46 Consult Neurology Routine Diagnostic Imagining Performed 07/13/25 22:44 CT head/brain wo con Stat Pending Results Patient Have Any Pending Studies at Discharge: No Discharge Instructions Given to Patient (Per Discharging Provider) You were admitted for new onset seizure. This is suspected to be due to alcohol withdrawal. The strongest recommendation is cessation of alcohol at this time as you are at high risk for recurrence. You do not need any antiseizure medications at this time. You can follow up as an outpatient. It is strongly recommended you apply for state insurance and establish with a Primary Care Provider, as you will need to have a physician sign a [place] DOT form filed in 6 months to re-instate driving privileges (01/12/2026 assuming seizure free) Follow up with Neurology will be coordinated and a PCP will be discussed on Wednesday, anticipate a call to arrange. Total Time Total Time Spent Total Time Spent (In Minutes): 45
--- NOTE | 2025-07-14 17:47 | Neurology Consultation ---
Date of Consultation July 14, 2025 Assessment & Plan (1) Alcohol withdrawal seizure: Plan A 25 yo M w EtOH withdrawal seizure. Would defer on starting AED. -Outpatient routine EEG - Recommend psych consult for EtOH abuse - No driving per [place] state law for 6 months. Patient expressed understanding - OK to discharge History of Present Illness Reason for Consultation: Seizure Requesting Physician: Dr. Joyce Attending Physician: Shakira Joyce MD History of Present Illness A 25 yo M w history of EtOH abuse admitted w first GTC seizure. Amnestic to event and bit tongue. Woke up in Ambulance. Occyred on 08/13/24 at work. Works at [employer]. Feels ok now. Last drink was last weekend. STates he drinks heavy. Takes no meds at home. No history of epilepsy. Allergies Allergy/AdvReac Type Severity Reaction Status Date / Time No Known Allergies Allergy Verified 07/13/25 22:56 Home Medications Medication Instructions Recorded Confirmed Type ibuprofen 125 mg-acetaminophen 250 2 tab PO DIRECTED PRN 07/13/25 07/13/25 History mg tablet (Advil Dual Action) PAIN/ACHES/FEVER Patient History Medical History (Updated 07/14/25 @ 05:59 by Loi Cortez MD) Pilonidal cyst Surgical History Hx of anterior cruciate ligament surgery Family History Other No significant family history Social History (Updated 07/14/25 @ 04:16 by Ly Luna RN) Smoking Status: Never smoker Hx Alcohol Use: Yes Alcohol type: hard liquor Hx Substance Use: No Preferred Language: Indonesian Communication Ability: Effective Visual Impairment: No Limitations Hearing Ability: Normal 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 Beliefs That Will Affect Care: None Current Living Situation: Parent current occupational status: student Other Information That Helps Us Care for You: No Feels Safe at Home: Yes Safety Concerns: Feels Safe At This Time Assistive Devices: None Physical Exam Neurologic: PERRL, EOMI, accommodation nl, no face palsy, no dysarthria normal touch/pain/proprioception and CN's II-XI intact bilaterally Vital Signs (Past 24 Hours): Vital Signs - 24 hr 07/13/25 22:32 07/13/25 22:33 07/13/25 22:33 Temperature 37.0 C Temperature Source Oral Pulse Rate 143 H 147 H Pulse Rate [Apical ] 145 H Pulse Rate from Sp O2 Sensor 147 H Pulse Rhythm [Apic al] Pulse Strength [Ap ical] Respiratory Rate 18 17 Respiratory Effort / Characteristics Non-Labored Sponta neous Respiratory Depth Normal Respiratory Patter n Regular Blood Pressure 208/152 H Blood Pressure [Ri ght Arm] 208/152 H Blood Pressure Giovanna n 170 Blood Pressure Giovanna n [Right Arm] 170 Blood Pressure Pos ition [Right Arm] Semi-fowlers Pulse Oximetry 97 91 Oxygen Delivery Me thod Room Air Sepsis Recent Feve r Within 48 Hours Sepsis New/Unexpla ined Change in Men cristopher Status Sepsis Action Take n by Nursing EWS Level of Consc iousness - Last Re sult EWS Temperature - Last Result EWS Respiratory Ra te - Last Result EWS Oxygen Saturat ion - Last Result EWS Oxygen in Use - Last Result EWS Score EWS Clinical Risk 07/13/25 22:36 07/13/25 22:45 07/13/25 22:48 Temperature Temperature Source Pulse Rate 127 H 121 H 117 H Pulse Rate [Apical ] Pulse Rate from Sp O2 Sensor 121 H 121 H Pulse Rhythm [Apic al] Pulse Strength [Ap ical] Respiratory Rate 28 H 19 19 Respiratory Effort / Characteristics Non-Labored Respiratory Depth Normal Respiratory Patter n Blood Pressure 208/152 H Blood Pressure [Ri ght Arm] Blood Pressure Giovanna n 170 Blood Pressure Giovanna n [Right Arm] Blood Pressure Pos ition [Right Arm] Pulse Oximetry 96 96 97 Oxygen Delivery Me thod Room Air Sepsis Recent Feve r Within 48 Hours No Sepsis New/Unexpla ined Change in Men cristopher Status No Sepsis Action Take n by Nursing No Action Required EWS Level of Consc iousness - Last Re sult EWS Temperature - Last Result EWS Respiratory Ra te - Last Result EWS Oxygen Saturat ion - Last Result EWS Oxygen in Use - Last Result EWS Score EWS Clinical Risk 07/13/25 22:50 07/13/25 22:50 07/13/25 22:50 Temperature Temperature Source Pulse Rate Pulse Rate [Apical ] 116 H Pulse Rate from Sp O2 Sensor Pulse Rhythm [Apic al] Pulse Strength [Ap ical] Respiratory Rate 18 Respiratory Effort / Characteristics Non-Labored Sponta neous Respiratory Depth Normal Respiratory Patter n Regular Blood Pressure 188/131 H 188/131 H Blood Pressure [Ri ght Arm] 188/131 H Blood Pressure Giovanna n 151 151 Blood Pressure Giovanna n [Right Arm] 150 Blood Pressure Pos ition [Right Arm] Semi-fowlers Pulse Oximetry 99 Oxygen Delivery Me thod Room Air Sepsis Recent Feve r Within 48 Hours Sepsis New/Unexpla ined Change in Men cristopher Status Sepsis Action Take n by Nursing EWS Level of Consc iousness - Last Re sult EWS Temperature - Last Result EWS Respiratory Ra te - Last Result EWS Oxygen Saturat ion - Last Result EWS Oxygen in Use - Last Result EWS Score EWS Clinical Risk 07/13/25 22:50 07/13/25 22:58 07/13/25 23:00 Temperature Temperature Source Pulse Rate 116 H Pulse Rate [Apical ] Pulse Rate from Sp O2 Sensor 117 H Pulse Rhythm [Apic al] Pulse Strength [Ap ical] Respiratory Rate 17 Respiratory Effort / Characteristics Respiratory Depth Respiratory Patter n Blood Pressure 188/131 H Blood Pressure [Ri ght Arm] Blood Pressure Giovanna n 151 Blood Pressure Giovanna n [Right Arm] Blood Pressure Pos ition [Right Arm] Pulse Oximetry 100 99 Oxygen Delivery Me thod Room Air Sepsis Recent Feve r Within 48 Hours Sepsis New/Unexpla ined Change in Men cristopher Status Sepsis Action Take n by Nursing EWS Level of Consc iousness - Last Re sult EWS Temperature - Last Result EWS Respiratory Ra te - Last Result EWS Oxygen Saturat ion - Last Result EWS Oxygen in Use - Last Result EWS Score EWS Clinical Risk 07/13/25 23:01 07/13/25 23:30 07/14/25 00:00 Temperature Temperature Source Pulse Rate 107 H 123 H 111 H Pulse Rate [Apical ] Pulse Rate from Sp O2 Sensor Pulse Rhythm [Apic al] Pulse Strength [Ap ical] Respiratory Rate 18 24 24 Respiratory Effort / Characteristics Respiratory Depth Respiratory Patter n Blood Pressure 169/115 H 156/111 H 153/96 H Blood Pressure [Ri ght Arm] Blood Pressure Giovanna n 126 115 Blood Pressure Giovanna n [Right Arm] Blood Pressure Pos ition [Right Arm] Pulse Oximetry 97 96 Oxygen Delivery Me thod Sepsis Recent Feve r Within 48 Hours Sepsis New/Unexpla ined Change in Men cristopher Status Sepsis Action Take n by Nursing EWS Level of Consc iousness - Last Re sult EWS Temperature - Last Result EWS Respiratory Ra te - Last Result EWS Oxygen Saturat ion - Last Result EWS Oxygen in Use - Last Result EWS Score EWS Clinical Risk 07/14/25 00:15 07/14/25 00:15 07/14/25 00:15 Temperature Temperature Source Pulse Rate 109 H Pulse Rate [Apical ] Pulse Rate from Sp O2 Sensor 108 H Pulse Rhythm [Apic al] Pulse Strength [Ap ical] Respiratory Rate 23 Respiratory Effort / Characteristics Respiratory Depth Respiratory Patter n Blood Pressure 144/103 H 144/103 H Blood Pressure [Ri ght Arm] Blood Pressure Giovanna n 115 115 Blood Pressure Giovanna n [Right Arm] Blood Pressure Pos ition [Right Arm] Pulse Oximetry 96 Oxygen Delivery Me thod Sepsis Recent Feve r Within 48 Hours Sepsis New/Unexpla ined Change in Men cristopher Status Sepsis Action Take n by Nursing EWS Level of Consc iousness - Last Re sult EWS Temperature - Last Result EWS Respiratory Ra te - Last Result EWS Oxygen Saturat ion - Last Result EWS Oxygen in Use - Last Result EWS Score EWS Clinical Risk 07/14/25 00:15 07/14/25 00:15 07/14/25 00:15 Temperature Temperature Source Pulse Rate Pulse Rate [Apical ] Pulse Rate from Sp O2 Sensor Pulse Rhythm [Apic al] Pulse Strength [Ap ical] Respiratory Rate Respiratory Effort / Characteristics Respiratory Depth Respiratory Patter n Blood Pressure 144/103 H 144/103 H 144/103 H Blood Pressure [Ri ght Arm] Blood Pressure Giovanna n 115 115 115 Blood Pressure Giovanna n [Right Arm] Blood Pressure Pos ition [Right Arm] Pulse Oximetry Oxygen Delivery Me thod Sepsis Recent Feve r Within 48 Hours Sepsis New/Unexpla ined Change in Men cristopher Status Sepsis Action Take n by Nursing EWS Level of Consc iousness - Last Re sult EWS Temperature - Last Result EWS Respiratory Ra te - Last Result EWS Oxygen Saturat ion - Last Result EWS Oxygen in Use - Last Result EWS Score EWS Clinical Risk 07/14/25 00:31 07/14/25 00:45 07/14/25 00:48 Temperature Temperature Source Pulse Rate 100 H 100 H Pulse Rate [Apical ] Pulse Rate from Sp O2 Sensor 103 H 100 H Pulse Rhythm [Apic al] Pulse Strength [Ap ical] Respiratory Rate 21 17 Respiratory Effort / Characteristics Non-Labored Respiratory Depth Normal Respiratory Patter n Blood Pressure Blood Pressure [Ri ght Arm] Blood Pressure Giovanna n Blood Pressure Giovanna n [Right Arm] Blood Pressure Pos ition [Right Arm] Pulse Oximetry 98 96 Oxygen Delivery Me thod Sepsis Recent Feve r Within 48 Hours Sepsis New/Unexpla ined Change in Men cristopher Status Sepsis Action Take n by Nursing EWS Level of Consc iousness - Last Re sult EWS Temperature - Last Result EWS Respiratory Ra te - Last Result EWS Oxygen Saturat ion - Last Result EWS Oxygen in Use - Last Result EWS Score EWS Clinical Risk 07/14/25 00:49 07/14/25 00:49 07/14/25 00:49 Temperature Temperature Source Pulse Rate Pulse Rate [Apical ] Pulse Rate from Sp O2 Sensor Pulse Rhythm [Apic al] Pulse Strength [Ap ical] Respiratory Rate Respiratory Effort / Characteristics Respiratory Depth Respiratory Patter n Blood Pressure 154/98 H 154/98 H 154/98 H Blood Pressure [Ri ght Arm] Blood Pressure Giovanna n 118 118 118 Blood Pressure Giovanna n [Right Arm] Blood Pressure Pos ition [Right Arm] Pulse Oximetry Oxygen Delivery Me thod Sepsis Recent Feve r Within 48 Hours Sepsis New/Unexpla ined Change in Men cristopher Status Sepsis Action Take n by Nursing EWS Level of Cons iousness - Last Re sult EWS Temperature - Last Result EWS Respiratory Ra te - Last Result EWS Oxygen Saturat ion - Last Result EWS Oxygen in Use - Last Result EWS Score EWS Clinical Risk 07/14/25 00:49 07/14/25 00:49 07/14/25 01:00 Temperature Temperature Source Pulse Rate Pulse Rate [Apical ] Pulse Rate from Sp O2 Sensor Pulse Rhythm [Apic al] Pulse Strength [Ap ical] Respiratory Rate 19 Respiratory Effort / Characteristics Respiratory Depth Respiratory Patter n Blood Pressure 154/98 H 154/98 H Blood Pressure [Ri ght Arm] Blood Pressure Giovanna n 118 118 Blood Pressure Giovanna n [Right Arm] Blood Pressure Pos ition [Right Arm] Pulse Oximetry Oxygen Delivery Me thod Sepsis Recent Feve r Within 48 Hours Sepsis New/Unexpla ined Change in Men cristopher Status Sepsis Action Take n by Nursing EWS Level of Consc iousness - Last Re sult EWS Temperature - Last Result EWS Respiratory Ra te - Last Result EWS Oxygen Saturat ion - Last Result EWS Oxygen in Use - Last Result EWS Score EWS Clinical Risk 07/14/25 01:15 07/14/25 01:16 07/14/25 01:30 Temperature Temperature Source Pulse Rate 92 H 91 H 78 Pulse Rate [Apical ] Pulse Rate from Sp O2 Sensor 94 H 81 Pulse Rhythm [Apic al] Pulse Strength [Ap ical] Respiratory Rate 22 19 Respiratory Effort / Characteristics Respiratory Depth Respiratory Patter n Blood Pressure Blood Pressure [Ri ght Arm] Blood Pressure Giovanna n Blood Pressure Giovanna n [Right Arm] Blood Pressure Pos ition [Right Arm] Pulse Oximetry 97 97 Oxygen Delivery Me thod Sepsis Recent Feve r Within 48 Hours Sepsis New/Unexpla ined Change in Men cristopher Status Sepsis Action Take n by Nursing EWS Level of Consc iousness - Last Re sult EWS Temperature - Last Result EWS Respiratory Ra te - Last Result EWS Oxygen Saturat ion - Last Result EWS Oxygen in Use - Last Result EWS Score EWS Clinical Risk 07/14/25 01:45 07/14/25 01:45 07/14/25 01:45 Temperature Temperature Source Pulse Rate Pulse Rate [Apical ] Pulse Rate from Sp O2 Sensor Pulse Rhythm [Apic al] Pulse Strength [Ap ical] Respiratory Rate Respiratory Effort / Characteristics Respiratory Depth Respiratory Patter n Blood Pressure 133/75 133/75 133/75 Blood Pressure [Ri ght Arm] Blood Pressure Giovanna n 102 102 102 Blood Pressure Giovanna n [Right Arm] Blood Pressure Pos ition [Right Arm] Pulse Oximetry Oxygen Delivery Me thod Sepsis Recent Feve r Within 48 Hours Sepsis New/Unexpla ined Change in Men cristopher Status Sepsis Action Take n by Nursing EWS Level of Consc iousness - Last Re sult EWS Temperature - Last Result EWS Respiratory Ra te - Last Result EWS Oxygen Saturat ion - Last Result EWS Oxygen in Use - Last Result EWS Score EWS Clinical Risk 07/14/25 01:45 07/14/25 01:45 07/14/25 01:45 Temperature Temperature Source Pulse Rate 85 Pulse Rate [Apical ] Pulse Rate from Sp O2 Sensor 88 Pulse Rhythm [Apic al] Pulse Strength [Ap ical] Respiratory Rate 19 Respiratory Effort / Characteristics Respiratory Depth Respiratory Patter n Blood Pressure 133/75 133/75 Blood Pressure [Ri ght Arm] Blood Pressure Giovanna n 102 102 Blood Pressure Giovanna n [Right Arm] Blood Pressure Pos ition [Right Arm] Pulse Oximetry 97 Oxygen Delivery Me thod Sepsis Recent Feve r Within 48 Hours Sepsis New/Unexpla ined Change in Men cristopher Status Sepsis Action Take n by Nursing EWS Level of Consc iousness - Last Re sult EWS Temperature - Last Result EWS Respiratory Ra te - Last Result EWS Oxygen Saturat ion - Last Result EWS Oxygen in Use - Last Result EWS Score EWS Clinical Risk 07/14/25 01:51 07/14/25 01:53 07/14/25 01:53 Temperature Temperature Source Pulse Rate 85 Pulse Rate [Apical ] Pulse Rate from Sp O2 Sensor Pulse Rhythm [Apic al] Pulse Strength [Ap ical] Respiratory Rate 19 Respiratory Effort / Characteristics Respiratory Depth Respiratory Patter n Blood Pressure 140/86 140/86 Blood Pressure [Ri ght Arm] Blood Pressure Giovanna n 98 98 Blood Pressure Giovanna n [Right Arm] Blood Pressure Pos ition [Right Arm] Pulse Oximetry Oxygen Delivery Me thod Sepsis Recent Feve r Within 48 Hours Sepsis New/Unexpla ined Change in Men cristopher Status Sepsis Action Take n by Nursing EWS Level of Cons iousness - Last Re sult EWS Temperature - Last Result EWS Respiratory Ra te - Last Result EWS Oxygen Saturat ion - Last Result EWS Oxygen in Use - Last Result EWS Score EWS Clinical Risk 07/14/25 01:53 07/14/25 02:04 07/14/25 02:30 Temperature Temperature Source Pulse Rate 81 Pulse Rate [Apical ] Pulse Rate from Sp O2 Sensor Pulse Rhythm [Apic al] Pulse Strength [Ap ical] Respiratory Rate 17 Respiratory Effort / Characteristics Non-Labored Respiratory Depth Normal Respiratory Patter n Blood Pressure 140/86 131/79 Blood Pressure [Ri ght Arm] Blood Pressure Giovanna n 98 96 Blood Pressure Giovanna n [Right Arm] Blood Pressure Pos ition [Right Arm] Pulse Oximetry 97 Oxygen Delivery Me thod Sepsis Recent Feve r Within 48 Hours Sepsis New/Unexpla ined Change in Men cristopher Status Sepsis Action Take n by Nursing EWS Level of Cons iousness - Last Re sult EWS Temperature - Last Result EWS Respiratory Ra te - Last Result EWS Oxygen Saturat ion - Last Result EWS Oxygen in Use - Last Result EWS Score EWS Clinical Risk 07/14/25 02:31 07/14/25 03:00 07/14/25 03:30 Temperature Temperature Source Pulse Rate 78 77 Pulse Rate [Apical ] Pulse Rate from Sp O2 Sensor Pulse Rhythm [Apic al] Pulse Strength [Ap ical] Respiratory Rate 18 22 Respiratory Effort / Characteristics Non-Labored Respiratory Depth Normal Respiratory Patter n Blood Pressure 127/73 125/72 Blood Pressure [Ri ght Arm] Blood Pressure Giovanna n 91 89 Blood Pressure Giovanna n [Right Arm] Blood Pressure Pos ition [Right Arm] Pulse Oximetry 97 96 Oxygen Delivery Me thod Sepsis Recent Feve r Within 48 Hours Sepsis New/Unexpla ined Change in Men cristopher Status Sepsis Action Take n by Nursing EWS Level of Consc iousness - Last Re sult EWS Temperature - Last Result EWS Respiratory Ra te - Last Result EWS Oxygen Saturat ion - Last Result EWS Oxygen in Use - Last Result EWS Score EWS Clinical Risk 07/14/25 04:00 07/14/25 04:06 07/14/25 04:54 Temperature 37.0 C Temperature Source Oral Pulse Rate 78 85 Pulse Rate [Apical ] 74 Pulse Rate from Sp O2 Sensor Pulse Rhythm [Apic al] Regular Pulse Strength [Ap ical] Normal Respiratory Rate 16 18 Respiratory Effort / Characteristics Non-Labored Sponta neous Respiratory Depth Normal Respiratory Patter n Regular Blood Pressure 120/74 Blood Pressure [Ri ght Arm] 146/94 H Blood Pressure Giovanna n Blood Pressure Giovanna n [Right Arm] 111 Blood Pressure Pos ition [Right Arm] Lying Pulse Oximetry 94 Oxygen Delivery Me thod Room Air Sepsis Recent Feve r Within 48 Hours Sepsis New/Unexpla ined Change in Men cristopher Status Sepsis Action Take n by Nursing EWS Level of Consc iousness - Last Re sult EWS Temperature - Last Result EWS Respiratory Ra te - Last Result EWS Oxygen Saturat ion - Last Result EWS Oxygen in Use - Last Result EWS Score EWS Clinical Risk 07/14/25 07:25 07/14/25 07:28 07/14/25 11:10 Temperature 36.6 C 36.5 C Temperature Source Oral Oral Pulse Rate Pulse Rate [Apical ] 76 75 Pulse Rate from Sp O2 Sensor Pulse Rhythm [Apic al] Pulse Strength [Ap ical] Respiratory Rate 18 18 Respiratory Effort / Characteristics Respiratory Depth Respiratory Patter n Blood Pressure Blood Pressure [Ri ght Arm] 116/77 134/83 Blood Pressure Giovanna n Blood Pressure Giovanna n [Right Arm] 90 100 Blood Pressure Pos ition [Right Arm] Semi-fowlers Semi-fowlers Pulse Oximetry 97 96 Oxygen Delivery Me thod Room Air Room Air Sepsis Recent Feve r Within 48 Hours Sepsis New/Unexpla ined Change in Men cristopher Status Sepsis Action Take n by Nursing EWS Level of Consc iousness - Last Re sult Spontaneously Aler t EWS Temperature - Last Result 36.6 EWS Respiratory Ra te - Last Result 18 EWS Oxygen Saturat ion - Last Result 97 EWS Oxygen in Use - Last Result No EWS Score 0 EWS Clinical Risk Low Risk 07/14/25 11:10 07/14/25 15:03 07/14/25 15:04 Temperature 37.0 C Temperature Source Oral Pulse Rate Pulse Rate [Apical ] 78 Pulse Rate from Sp O2 Sensor Pulse Rhythm [Apic al] Pulse Strength [Ap ical] Respiratory Rate 18 Respiratory Effort / Characteristics Respiratory Depth Respiratory Patter n Blood Pressure Blood Pressure [Ri ght Arm] 120/68 Blood Pressure Giovanna n Blood Pressure Giovanna n [Right Arm] 85 Blood Pressure Pos ition [Right Arm] Semi-fowlers Pulse Oximetry 98 Oxygen Delivery Me thod Room Air Sepsis Recent Feve r Within 48 Hours Sepsis New/Unexpla ined Change in Men cristopher Status Sepsis Action Take n by Nursing EWS Level of Consc iousness - Last Re sult Spontaneously Aler t Spontaneously Aler t EWS Temperature - Last Result 36.5 37.0 EWS Respiratory Ra te - Last Result 18 18 EWS Oxygen Saturat ion - Last Result 96 98 EWS Oxygen in Use - Last Result No No EWS Score 0 0 EWS Clinical Risk Low Risk Low Risk 07/14/25 17:41 Temperature 37.0 C Temperature Source Pulse Rate Pulse Rate [Apical ] 78 Pulse Rate from Sp O2 Sensor Pulse Rhythm [Apic al] Pulse Strength [Ap ical] Respiratory Rate 18 Respiratory Effort / Characteristics Respiratory Depth Respiratory Patter n Blood Pressure Blood Pressure [Ri ght Arm] 120/68 Blood Pressure Giovanna n Blood Pressure Giovanna n [Right Arm] Blood Pressure Pos ition [Right Arm] Pulse Oximetry 98 Oxygen Delivery Me thod Sepsis Recent Feve r Within 48 Hours Sepsis New/Unexpla ined Change in Men cristopher Status Sepsis Action Take n by Nursing EWS Level of Consc iousness - Last Re sult EWS Temperature - Last Result EWS Respiratory Ra te - Last Result EWS Oxygen Saturat ion - Last Result EWS Oxygen in Use - Last Result EWS Score EWS Clinical Risk Results & Data Vital Signs (Past 12 Hours) Vital Signs Temp Pulse Resp BP Pulse Ox O2 Del Method 07/14/25 15:03 37.0 C 78 18 120/68 98 Room Air 07/14/25 11:10 36.5 C 75 18 134/83 96 Room Air 07/14/25 07:25 36.6 C 76 18 116/77 97 Room Air (1) Alcohol withdrawal seizure Complication of substance-induced condition: uncomplicated Qualified Code(s): F10.930 - Alcohol use, unspecified with withdrawal, uncomplicated; R56.9 - Unspecified convulsions
--- NOTE | 2025-07-16 05:46 | Electrocardiogram Report ---
Test Reason : Blood Pressure : */* mmHG Vent. Rate : 137 BPM Atrial Rate : 137 BPM P-R Int : 128 ms QRS Dur : 84 ms QT Int : 294 ms P-R-T Axes : 47 51 48 degrees QTcB Int : 443 ms Sinus tachycardia Otherwise normal ECG When compared with ECG of 06-Jan-2025 20:01, Criteria for Inferior infarct are no longer Present T wave inversion no longer evident in Inferior leads Confirmed by Robert Lopez ([id number] on 07/16/2025 5:46:34 AM Referred By: REFERRED SELF Confirmed By: Robert Lopez
== END 2025-07-14 18:24 | disposition home or self-care (01) | DRG 897 ==
LOC: ED 22:28 → EDINP 07-14 00:05 → 2S 07-14 02:05